=== PATIENT | male | born 1955 | race Caucasian/White ===

== ENCOUNTER 2017-04-19 01:09 | Observation (INO) ==
[2017-04-19] MEDS ORDERED: ASPIRIN PO STA (01:17)
--- NOTE | 2017-04-19 01:28 | ED EKG INTERP ---
This chart was entered by Chetna Contreras Scribe, acting as scribe for Tobias Cool MD. EKG Interpretation - EKG Time of EKG reading by physician:: 01:15 EKG Read and Signed by:: Tobias Cool EKG Interpretation (*Must complete 3 of following elements*): Normal Rate: 93 Rhythm: Pacemaker Rhythm Attestation - Physician/ MAY Attestation Patient care was provided by Advanced Practice Provider:: No The physician spent face to face time with patient:: Yes Advanced Practice Provider documentation review:: Supervising physician onsite and consulted in the evaluation and care of this patient. The physician did have a face to face encounter with the patient. This chart was documented by the indicated scribe, (Chetna Contreras Scribe) and accurately reflects the services I performed and decisions made by me, Tobias Cool MD, as attested by the provider's signature.
[2017-04-19 01:33] LABS: MANUAL DIFF NEEDED? NO
[2017-04-19] MEDS ORDERED: NITROGLYCERIN TOP ONE (01:37)
[2017-04-19] MEDS ORDERED: G.I. COCKTAIL PO ONE (01:37)
[2017-04-19 01:46] LABS: BASO% 0.2 % (0.0-0.8); EOS# 0.01 X1000 (0.0-0.7); EOS% 0.1 % (0.0-10.0); HEMATOCRIT 37.3 % (42.0-52.0); HEMOGLOBIN 12.9 g/dL (14.0-18.0); IMM GRAN# 0.22 X1000 (0.0-0.04); IMM GRAN% 1.7 % (0.0-0.5); LYMPH# 1.57 X1000 (1.2-3.4); MCH 33.1 PG (27-31); MCHC 34.6 g/dL (33-37); MCV 95.6 FL (81-99); MONO% 4.6 % (1.7-9.3); MPV 10.9 FL (7.4-10.4); NEUT% 81.4 % (42.2-75.2); PLT 238 X1000 (130-400)
[2017-04-19 01:51] LABS: INR 0.99; PROTIME 10.4 Seconds (9.2-11.7); PTT 26.6 Seconds (22.0-36.0)
--- NOTE | 2017-04-19 01:58 | PROVIDER DOCUMENTATION ---
This chart was entered by Chetna Contreras Scribe, acting as scribe for Tobias Cool MD. HPI-Chest Pain - General Chief Complaint: Chest Pain Stated Complaint: HEAT PAIN Time Seen by Provider: 04/19/17 01:16 Source: patient Allergies/Adverse Reactions: Patient Allergies Allergy/AdvReac Type Severity Reaction Status Date / Time No Known Allergies Allergy Verified 04/19/17 01:37 Home Medications: Home Medication List Medication Instructions Recorded Confirmed Last Taken Type Aspirin 81 mg PO QHS 08/18/12 04/19/17 04/18/17 19:00 History Carvedilol [Coreg] 25 mg PO BID 08/18/12 04/19/17 04/18/17 19:00 History Insulin Glargine [Lantus] 50 unit SUBQ QHS 08/18/12 04/19/17 04/18/17 19:00 History Metformin HCl [Glucophage] 1,000 mg PO BID 08/18/12 04/19/17 04/18/17 19:00 History Amlodipine [Norvasc] 10 mg PO QAM 06/17/13 04/19/17 04/18/17 08:00 History Ranolazine E.r. [Ranexa] 1,000 mg PO BID 05/13/16 04/19/17 04/18/17 19:00 History ATORVAstatin [Lipitor] 40 mg PO QHS #30 tablet 05/15/16 04/19/17 04/18/17 19:00 Rx Pantoprazole Sodium 40 mg PO QAM 03/18/17 04/19/17 04/18/17 08:00 History Sacubitril/Valsartan [Entresto 24 1 tab PO BID 03/18/17 04/19/17 04/18/17 19:00 History mg-26 mg Tablet] Clopidogrel [Plavix] 75 mg PO QAM 04/19/17 04/19/17 04/18/17 08:00 History Furosemide [Lasix] 40 mg PO QAM 04/19/17 04/19/17 04/18/17 08:00 History Isosorbide Mononitrate E.r. [Imdur] 60 mg PO QAM 04/19/17 04/19/17 04/18/17 08: 00 History Nitroglycerin Sl [Nitroglycerin] 0.4 mg SL PRN PRN 04/19/17 04/19/17 04/19/17 00 :00 History Sucralfate [Carafate] 1 gm PO 404/19/17 04/19/17 04/18/17 08:00 History - History of Present Illness-CP Nature of Presenting Problem: 62 Y/O M presents to ED with Chest Pain. Pt states that he began having chest pain 20:30 when he was getting ready for bed. States pain is about a 5.5/10 and that he took an aspirin and a nitro states didn't have pain relief. Pt states that the chest pain goes across his chest with radiation to the arm states dull pain. Pt denies diaphoresis. Pt has a hx of a CABG, triple bypass, heart attack , has a pacemaker with Defibrillator. Hx of diabetes. C/o of ABD pain, hx of pancreatic cyst removal. Location: reports: central Chest Pain Radiation: reports: arms Quality of Pain: reports: dull Severity in ED: moderate Onset/Duration: 4-6 hours ago Timing: still present Associated Symptoms: reports: abdominal pain. denies: diaphoresis, dizziness, fatigue, fever/chills, vomiting Nitro Today/Relief: 0.4 mg x 1, provided at home Aspirin Treatment Today: 325 mg x 1, provided at home (325mg x1), provided by ED Similar Symptoms Previously?: Yes Review of Systems - Adult - REVIEW OF SYSTEMS - ADULT Constitutional: denies: chills, fever Eyes: reports: no symptoms reported Ears, Nose, Mouth & Throat: reports: no symptoms reported Cardiovascular: reports: chest pain Respiratory: denies: cough, shortness of breath Gastrointestinal: reports: abdominal pain. denies: diarrhea, difficulty swallowing, nausea, vomiting Genitourinary: reports: no symptoms reported Musculoskeletal: reports: no symptoms reported Integumentary: reports: no symptoms reported Neurological: reports: no symptoms reported Psychiatric: reports: no symptoms reported Endocrine: reports: no symptoms reported Hematologic/Lymphatic: reports: no symptoms reported Allergic/Immunologic: reports: no symptoms reported All Other Systems: Reviewed and Negative Past History - Adult - PAST MEDICAL HISTORY-ADULT Review of Records: reports: Old Records Reviewed, Nursing Assessment Review, Medications Reviewed, Social history reviewed & non-contributory. Major Childhood Illnesses: reports: denies history Cardiovascular: reports: CAD, HTN, hyperlipidemia, [place], pacemaker, other (triple bypass) Respiratory: reports: COPD, sleep apnea Gastrointestinal: reports: denies history Obstetrical/Gynecological: reports: denies history Genitourinary: reports: denies history Musculoskeletal: reports: chronic pain Neurological: reports: CVA Endocrine/Immune: reports: Diabetes Other Conditions: reports: denies history - PRIOR SURGERIES/PROCEDURES Surgical/Procedure History: reports: CABG, hernia repair - PRIOR HOSPITALIZATIONS Prior Hospitalizations: reports: none - IMMUNIZATION STATUS Childhood Immunizations: See Nurse Assessment Flu Vaccine: See Nurse Assessment - FAMILY HISTORY Family History: reviewed, not pertinent Physical Exam-General - CONSTITUTIONAL General Appearance: alert, no apparent distress, obese - EYES Eyes: pink conjunctivae, anisocoria - HEAD, EARS, NOSE, MOUTH & THROAT HENMT: moist mucous membranes, normal ENT inspection, TMs normal, pharynx normal - NECK Neck: full range of motion, supple, normal inspection - RESPIRATORY Respiratory: lungs clear, normal breath sounds - CARDIOVASCULAR Cardiovascular: regular rate, rhythm, no edema, no gallop, no JVD, no murmur - GASTROINTESTINAL (ABDOMEN) Abdominal Exam: normal bowel sounds, soft, tenderness (RUQ). negative: distended, guarding, rigid, rebound - LYMPHATIC Lymphatic: no adenopathy - MUSCULOSKELETAL Back Exam: no CVA tenderness, no vertebral tenderness Extremity: non-tender - SKIN Integumentary: normal turgor, warm/dry - NEUROLOGIC Neurologic: grossly normal Progress - PLAN OF CARE/RESULTS Progress/Plan/Lab Results: Vital Signs - 8 hr 04/19/17 01:17 Temperature 97.7 F Pulse Rate 92 H Respiratory Rate 18 Blood Pressure 170/83 O2 Sat by Pulse Oximetry 99 Laboratory Results - last 24 hr 04/19/17 04/19/17 04/19/17 01:28 01:28 01:28 WBC 13.08 H RBC 3.90 L Hgb 12.9 L Hct 37.3 L MCV 95.6 MCH 33.1 H MCHC 34.6 RDW Std Deviation 12.0 Plt Count 238 MPV 10.9 H Immature Gran % (Auto) 1.7 H Neut % (Auto) 81.4 H Lymph % (Auto) 12.0 L Bledsoe % (Auto) 4.6 Eos % (Auto) 0.1 Baso % (Auto) 0.2 Immature Gran # (Auto) 0.22 H Neut # (Auto) 10.66 H Lymph # (Auto) 1.57 Bledsoe # (Auto) 0.60 H Eos # (Auto) 0.01 Baso # (Auto) 0.02 PT INR PTT (Actin FS) Sodium 142 Potassium 4.6 Chloride 101 Carbon Dioxide 22 L Anion Gap 19 BUN 26 H Creatinine 1.4 H Estimated GFR/1.73 m2 51 BUN/Creatinine Ratio 19 Glucose 200 H Calculated Osmolality 294 Calcium 9.4 Magnesium 1.4 L Total Bilirubin 0.40 AST 17 ALT 5 L Alkaline Phosphatase 52 Creatine Kinase 106 Troponin T < 0.010 Total Protein 7.7 Albumin 4.7 Globulin 3.0 Albumin/Globulin Ratio 1.6 Lipase 04/19/17 04/19/17 01:28 01:28 WBC RBC Hgb Hct MCV MCH MCHC RDW Std Deviation Plt Count MPV Immature Gran % (Auto) Neut % (Auto) Lymph % (Auto) Bledsoe % (Auto) Eos % (Auto) Baso % (Auto) Immature Gran # (Auto) Neut # (Auto) Lymph # (Auto) Bledsoe # (Auto) Eos # (Auto) Baso # (Auto) PT 10.4 INR 0.99 PTT (Actin FS) 26.6 Sodium Potassium Chloride Carbon Dioxide Anion Gap BUN Creatinine Estimated GFR/1.73 m2 BUN/Creatinine Ratio Glucose Calculated Osmolality Calcium Magnesium Total Bilirubin AST ALT Alkaline Phosphatase Creatine Kinase Troponin T Total Protein Albumin Globulin Albumin/Globulin Ratio Lipase 38 Orders Category Date Time Status Cardiac Monitoring DIRECTED Care 04/19/17 01:17 Active Oxygen Therapy- ED Nursing DIRECTED Care 04/19/17 01:17 Active Saline Loc NOW Care 04/19/17 01:17 Active acute [FLAT/UPRIGHT ABD/1 VIEW CHEST] [RAD] Stat Exams 04/19/17 01:38 Taken CBC WITH ELECTRONIC DIFF [HEME] Stat Lab 04/19/17 01:28 Completed CK PROFILE [SP CHEM] Stat Lab 04/19/17 01:28 Completed COMPREHENSIVE METABOLIC PANEL [CHEM] Stat Lab 04/19/17 01:28 Completed LIPASE [CHEM] Stat Lab 04/19/17 01:28 Completed MAGNESIUM [CHEM] Stat Lab 04/19/17 01:28 Completed PROTIME WITH INR [COAG] Stat Lab 04/19/17 01:28 Completed PTT [COAG] Stat Lab 04/19/17 01:28 Completed TROPONIN T Stat Lab 04/19/17 01:28 Completed Aspirin Med 04/19/17 01:17 Discontinued 325 mg PO STAT STA [place] Alk/Al&mg Hydrox [G.i. Cocktail] Med 04/19/17 01:37 Discontinued 30 ml PO NOW ONE Nitroglycerin Med 04/19/17 01:37 Discontinued 1 inch TOP NOW ONE EKG [EKG] Stat Ther 04/19/17 01:11 Ordered repeat exam: patient is pain free at this time. will admit for observation. hospitalist electronic news gathering camera person paged. Result Diagrams: 04/19/17 01:28 04/19/17 01:28 Departure - Departure Date of Disposition Decision: 04/19/17 Time of Disposition Decision: 02:51 DIAGNOSIS: Chest pain Qualifiers: Chest pain type: unspecified Qualified Code(s): R07.9 - Chest pain, unspecified CAD (coronary artery disease) Qualifiers: Coronary Disease-Associated Artery/Lesion type: [place] artery [place] vs. transplanted heart: [place] heart Associated angina: with unspecified angina Qualified Code(s): I25.119 - Atherosclerotic heart disease of [place] coronary artery with unspecified angina pectoris Disposition: ADMITTED INPATIENT 09 Certified Medical Emergency: Emergent Condition: Stable Referrals and Follow-Ups: None,PCP [Primary Care Provider] - - Critical Care Note This patient required my direct & personal management of CC.: Yes Attestation - Physician/ MAY Attestation The physician spent face to face time with patient:: Yes Advanced Practice Provider documentation review:: Supervising physician onsite and consulted in the evaluation and care of this patient. The physician did have a face to face encounter with the patient. This chart was documented by the indicated scribe, (Chetna Contreras Scribe) and accurately reflects the services I performed and decisions made by me, Tobias Cool MD, as attested by the provider's signature.
[2017-04-19 02:16] LABS: ALBUMIN 4.7 g/dL (3.5-5.0); CALCIUM 9.4 mg/dL (8.8-10.2); MAGNESIUM 1.4 mg/dL (1.5-2.7); POTASSIUM 4.6 mmol/L (3.5-5.1); TOTAL BILIRUBIN 0.4 mg/dL (0.20-1.00); TOTAL PROTEIN 7.7 g/dL (6.3-8.3)
[2017-04-19] MEDS ORDERED: MAGNESIUM SULFATE 2 GM/S.W.I. 2 GM/50 ML IVPB IV ONE ×2 (03:23→06:00)
[2017-04-19] MEDS ORDERED: ZOFRAN IV PRN (04:28)
[2017-04-19] MEDS ORDERED: NITROGLYCERIN SL PRN (04:28)
[2017-04-19] MEDS ORDERED: NS 1,000 ML IV SCH (04:28)
[2017-04-19] MEDS: LOVENOX SUBQ SCH (05:27)
[2017-04-19 05:39] LABS: HEMOGLOBIN A1C 5.4 % (4.8-6.0)
--- NOTE | 2017-04-19 05:46 | HISTORY AND PHYSICAL ---
PRIMARY CARE PROVIDER: MOTOR BIKE MECHANIC: Dr. Wiggins. REASON FOR ADMISSION: Chest pain. HISTORY OF PRESENT ILLNESS: A 62-year-old male presents to the emergency room with chest pain that started around 20:30 when he was getting ready for bed. The patient states it was about 5/10. He took an aspirin and a few nitro's but did not have relief. He did have pain across the bottom of his chest that was dull that radiated to the arm. He denied diaphoresis, dizziness, nausea, or vomiting, diarrhea or dysuria. The patient has a known history of coronary artery disease and is status post triple bypass. He has a defibrillator placed and history of diabetes mellitus. He did complain of some recent abdominal pain in the right upper quadrant that seemed to radiate into his chest and some nausea during the morning, but he states that happens on and off, and was not associated with this episode. Chest x-ray, abdominal x-ray and laboratory data was complete and grossly normal. The patient did have a mildly elevated BUN and creatinine at 26 and 1.4, which appears to be acute. He will be admitted in observation status for further evaluation and treatment. PAST MEDICAL HISTORY: See HPI. PREVIOUS SURGICAL HISTORY: 1. Coronary artery bypass. 2. AICD placement. 3. Pancreatic pseudocyst surgery. FAMILY HISTORY: Positive for heart disease, diabetes and asthma in first-degree relatives. SOCIAL HISTORY: He stopped smoking over a year ago. He lives at home with his . No alcohol or illicit drug use or abuse. ALLERGIES: No known drug allergies. HOME MEDICATIONS: 1. Norvasc 10 mg p.o. every morning. 2. Ranexa 1000 mg p.o. b.i.d. 3. Metformin 1000 mg p.o. b.i.d. 4. Aspirin 81 mg daily. 5. Coreg 25 mg p.o. daily. 6. Lantus 45 units subcutaneously at bedtime. 7. Lipitor 40 mg p.o. at bedtime. 8. Entresto 24/26 mg 1 p.o. b.i.d. 9. Protonix 40 mg p.o. daily. 10. Nitroglycerin 0.4 sublingual p.r.n. 11. Carafate 1 g p.o. 4 times a day. 12. Lasix 40 mg daily. 13. Imdur 60 mg p.o. daily. 14. Plavix 75 mg p.o. daily. REVIEW OF SYSTEMS: Fourteen point review of systems conducted with the patient. Pertinent positives listed above in the HPI. All other systems reviewed and found to be negative. PHYSICAL EXAMINATION: VITAL SIGNS: Temperature 97.7 degrees, pulse 78, respirations 18, blood pressure 168/82, and oxygen saturation 99% on room air. GENERAL: Very pleasant 62-year-old male lying on the ER stretcher in no acute distress. is at the bedside, very supportive and answers all questions appropriately. HEENT: Head is atraumatic, normocephalic. Pupils equal, round, and reactive to light. Extraocular eye movements are intact. Sclerae is anicteric. Conjunctivae is pink. Oral mucosa is moist. NECK: Supple. No JVD. No thyromegaly. Trachea is midline. No cervical lymphadenopathy. CARDIAC: S1-S2 appreciated. No murmurs, gallops, or rubs. Regular rhythm. LUNGS: Clear to auscultation but decreased bilaterally. No rhonchi, wheezes or rales. ABDOMEN: Protuberant soft, nondistended, and nontender. Bowel sounds present in all 4 quadrants. Normoactive. No pulsatile mass. No organomegaly. EXTREMITIES: No clubbing, cyanosis, or edema. 2+ pedal pulses bilaterally. NEUROLOGICAL: Alert and oriented x3. No focal or motor deficit is noted. SKIN: Warm, dry, and intact. No acute lesions or rash. LABORATORY DATA: WBC 13.08, hemoglobin 12.9, hematocrit 37.3 and platelet count 238,000. Coag's within normal limits. Sodium 142, potassium 4.6, chloride 101, carbon dioxide 22, BUN 26, creatinine 1.4, glucose 200, magnesium 1.4. CK 1 and troponin's are within normal limits. ASSESSMENT AND PLAN: 1. Chest pain, rule out acute myocardial infarction. Trend cardiac enzymes. Consult cardiology. Morphine as needed for chest pain. 2. Chronic systolic heart failure. Continue home medications. Again, Cardiology will be consulted. He is not in exacerbation. 3. Acute kidney injury. We will give gentle fluid rehydration at 75 mL an hour normal saline overnight. 4. Hypomagnesemia. We will give 2 g of magnesium sulfate IV. 5. Hyperlipidemia. Continue statin. 6. Diabetes mellitus with hyperglycemia. Continue home medications. Check hemoglobin A1c. Further recommendations per patient clinical course. Dictated by JOSE Moralez for Marin Villeda MD cc: JOSE Moralez MD Primary Care Provider
--- NOTE | 2017-04-19 06:09 | EKG Report ---
Test Performed on : 04/19/2017 04:42:54 AM Test Reason : chest pain Blood Pressure : / mmHG Vent. Rate : 076 BPM Atrial Rate : 076 BPM P-R Int : 182 ms QRS Dur : 140 ms QT Int : 452 ms P-R-T Axes : 019 -74 082 degrees QTc Int : 508 ms Electronic ventricular pacemaker Biventricular pacemaker detected Abnormal ECG When compared with ECG of 19-APR-2017 02:53, (Unconfirmed) No significant change was found Confirmed by Chito Love DO ([id number]) on 04/22/2017 9:49:58 AM
--- NOTE | 2017-04-19 06:19 | EKG Report ---
Test Performed on : 04/19/2017 01:15:10 AM Test Reason : CP Blood Pressure : / mmHG Vent. Rate : 093 BPM Atrial Rate : 093 BPM P-R Int : 168 ms QRS Dur : 148 ms QT Int : 412 ms P-R-T Axes : 034 -73 083 degrees QTc Int : 512 ms Sinus rhythm. with occasional premature ventricular complexes. Left axis deviation Nonspecific intraventricular block Possible Lateral infarct , age undetermined Cannot rule out Inferior infarct , age undetermined Abnormal ECG When compared with ECG of 14-MAY-2016 06:31, Sinus rhythm. has replaced Electronic ventricular pacemaker Unconfirmed Result
--- NOTE | 2017-04-19 06:20 | EKG Report ---
Test Performed on : 04/19/2017 02:53:33 AM Test Reason : CP Blood Pressure : / mmHG Vent. Rate : 078 BPM Atrial Rate : 078 BPM P-R Int : 182 ms QRS Dur : 144 ms QT Int : 442 ms P-R-T Axes : 011 -75 084 degrees QTc Int : 503 ms Normal sinus rhythm. Right bundle branch block Left anterior fascicular block Bifascicular block Abnormal ECG When compared with ECG of 19-APR-2017 01:15, (Unconfirmed) premature ventricular complexes. are no longer present Borderline criteria for Lateral infarct are no longer present Unconfirmed Result
[2017-04-19] MEDS: HUMALOG SUBQ SCH ×4 (07:08→23:33)
--- NOTE | 2017-04-19 07:32 | Diag Imaging Result Doc PS360 ---
EXAM: FLAT/UPRIGHT ABD/1 VIEW CHEST INDICATION: upper abdomen/anterior chest discomfort TECHNIQUE: 4 views COMPARISON: Chest radiograph dated 05/12/2016 FINDINGS: There are nonspecific bowel gas and stool patterns. There is no obstructive bowel pattern. There is no evidence of large volume free abdominal gas. There is no evidence of organomegaly. The lungs are grossly clear. There is no discrete pleural fluid collection or pneumothorax. The heart is somewhat prominent but stable. There is a stable left-sided pacemaker. IMPRESSION: Nonspecific abdomen. Electronically signed by Luis Benavides 04/19/2017 7:30 AM
[2017-04-19] MEDS: RANEXA PO SCH ×2 (08:54→20:12)
[2017-04-19] MEDS: CARAFATE PO SCH ×4 (08:54→20:12)
[2017-04-19] MEDS: COREG PO SCH ×2 (08:54→20:12)
[2017-04-19] MEDS: PLAVIX PO SCH (08:54)
[2017-04-19] MEDS: PROTONIX PO SCH (08:54)
[2017-04-19] MEDS: NORVASC PO SCH (08:54)
[2017-04-19] MEDS: ENTRESTO 24 MG-26 MG TABLET PO SCH ×2 (08:55→20:12)
[2017-04-19] MEDS: LASIX PO SCH (08:55)
[2017-04-19] MEDS ORDERED: IMDUR PO SCH ×2 (09:00→09:37)
[2017-04-19] MEDS ORDERED: IMDUR PO ONE (09:37)
--- NOTE | 2017-04-19 09:55 | Diag Imaging Result Doc PS360 ---
EXAM: US ABDOMEN-COMPLETE HISTORY: rule out galstones TECHNIQUE: COMPARISON: 12/14/2016 FINDINGS: There is fatty infiltration of the liver. Normal gallbladder. No stones. The gallbladder wall is not thickened. The common bile duct measures 6 mm. Borderline increased renal echotexture. No hydronephrosis to the right kidney. No hydronephrosis to the left kidney. Normal cortical thickness to each kidney. Normal spleen. No ascites. The aorta, inferior vena cava, and pancreas are all obscured. IMPRESSION: 1.Fatty infiltration of the liver 2.Normal gallbladder 3.Borderline mild increased renal echotexture which can be seen with medical renal disease. Electronically signed by Chris Norris 04/19/2017 9:53 AM
--- NOTE | 2017-04-19 10:58 | CONSULTATION ---
DATE OF CONSULTATION: 04/19/2017 INDICATION: Chest pain. HISTORY OF PRESENT ILLNESS: Mr. Balderrama is a 62-year-old white male with a history of coronary artery disease with severe knik and bypass vessel coronary artery disease that previously has been determined not amenable to intervention. He presented for evaluation of chest discomfort that began around 8:30 yesterday evening while he was lying in bed. It is described as a pressure- like sensation in his mid chest with discomfort in his bilateral arms as well. He took several bouts of nitroglycerin with some improvement, but ultimately did not improve until he got to the ER. He had no nausea, vomiting, no diaphoresis. He has a defibrillator in place with no device shocks. He reports compliance with his medications at home, including his aspirin, however I have questions about this considering his heart rate is markedly elevated compared to previous heart rates while on the same level of beta blockade. PAST MEDICAL HISTORY: 1. Significant for coronary disease with coronary bypass. His last cardiac cath was in February 2016. This demonstrated an 80% to 90% left main lesion, an occluded mid LAD with an occluded diagonal. Ramus had an ostial 70-80. Circumflex had diffuse severe disease in a small caliber vessel. RCA was dominant and subtotal within the distal vessel prior to the PDA. The PDA was occluded. There was a collateralization of the left system via the distal RCA. His graft anatomy showed a vein jump graft to the LAD and diagonal that was patent. The vein graft to the RCA was occluded. At the time, EF was 20%. 2. Hypertension. 3. Hyperlipidemia. 4. History of AICD implantation secondary to ischemic cardiomyopathy. 5. Type 2 diabetes. 6. Hypertension. 7. Hyperlipidemia. 8. Previous history of tobacco use. 9. History of pancreatitis. 10. Reflux disease. 11. COPD. SOCIAL HISTORY: Quit smoking around a year or so ago. Lives at home with his . No alcohol or illicit drugs. FAMILY HISTORY: Significant for hypertension. REVIEW OF SYSTEMS: A 10 system review of systems is negative, except for those things mentioned in HPI. PHYSICAL EXAMINATION: Vital signs: Afebrile. Heart rates in the 70s to 80s. Blood pressure 160/88. O2 saturation 99% on room air. General: Generally, no acute distress. HEENT: Oropharynx is moist. Poor dentition. Eye examination shows pink conjunctivae, white sclerae. Neck: Examination shows no obvious thyromegaly or thyroid tenderness. Cardiovascular: He is in a regular rate and rhythm. No murmurs. No S3. He has no S4. No lower extremity edema. Chest: Exam is clear bilaterally. No increased work of breathing. Abdomen: Soft, nontender, nondistended. He has no obvious organomegaly. Skin Exam: Warm and dry throughout. Neurological: Moving all extremities well. Cranial nerves 2-12 are intact without any sensation deficits. Psychiatric: Alert and oriented. Normal mood and affect. PERTINENT DATA: He had an EKG showing sinus rhythm, paced ventricular complexes. I do not see a result of a chest x-ray as of yet. Acute abdominal series shows a nonspecific abdomen with no evidence of any significant chest abnormalities. His laboratory data shows a white count of 13, his hematocrit is 37, his platelet count is 238. His INR is 0.99. Sodium 142, potassium 4.6. His BUN is 26 with a creatinine 1.4. His mag is 1.4. His A1c is 5.4. His cardiac enzymes are negative times multiple sets. His proBNP was 5252. ASSESSMENT: 1. Ischemic cardiomyopathy. 2. Hypertension. PLAN: Patient has received a stress/rest myocardial perfusion scan with a rest today and stress in the morning because he was not made n.p.o. I have increased his Imdur presently. His chest x- ray did not show evidence for fluid accumulation. He does have some mild renal insufficiency noted on his study, although his proBNP seems out of proportion to his renal insufficiency. I will stop his IV fluids. We may need to consider increasing his Entresto in the morning if his blood pressure continues to be quite elevated over the course of the day. I have made sure that he gets his full 90 mg of Imdur this morning. cc: Minesh Love MD
[2017-04-19] MEDS: MORPHINE IV PRN ×3 (11:06→19:15)
[2017-04-19] MEDS ORDERED: ASPIRIN PO SCH (21:00)
[2017-04-19] MEDS ORDERED: LANTUS SUBQ SCH (21:00)
[2017-04-19] MEDS ORDERED: LIPITOR PO SCH (21:00)
[2017-04-20] MEDS: LOVENOX SUBQ SCH (04:35)
[2017-04-20] MEDS: MORPHINE IV PRN ×2 (04:38→09:25)
--- NOTE | 2017-04-20 04:38 | ECHO REPORT ---
ORDER DATE: 04/19/2017 MEASUREMENTS: 1. Left ventricular septal thickness 1.1. 2. Posterior wall thickness 1.1. 3. Left atrium 5.0. 4. Aortic root 3.5. SUMMARY: 1. Technically difficult study due to limited acoustic window quality. 2. Mild aortic valve sclerosis demonstrated with adequate aortic valve opening evident and peak gradient across the aortic valve less than 10 mmHg. Mitral, tricuspid, and pulmonic valves are without structural abnormality with mild mitral regurgitation, mild tricuspid regurgitation, and mild pulmonic insufficiency. The estimated systolic PA pressure by Doppler is 45-50 mmHg. [id number] pulmonary hypertension suggested. Aortic root is normal size. 3. [id number] left ventricular enlargement with upper normal wall thickness demonstrated. Estimated left ejection fraction is approximately 35%. Regional wall motion analysis is challenging given limitations of the study. Left atrium is moderately enlarged. Right atrium and right ventricle are normal in size with normal right ventricular systolic function. Pacemaker lead versus defibrillator lead evident in right ventricle. 4. No pericardial effusion. 5. Appearance of inferior vena cava suggests normal central venous pressure. cc: MD Marin Sheets MD
[2017-04-20 04:55] LABS: MANUAL DIFF NEEDED? NO
[2017-04-20 05:02] LABS: BASO% 0.3 % (0.0-0.8); EOS# 0.17 X1000 (0.0-0.7); EOS% 1.4 % (0.0-10.0); HEMATOCRIT 35.4 % (42.0-52.0); HEMOGLOBIN 12.1 g/dL (14.0-18.0); IMM GRAN% 1.6 % (0.0-0.5); LYMPH# 2.43 X1000 (1.2-3.4); LYMPH% 19.4 % (20.5-51.1); MCH 32.8 PG (27-31); MCHC 34.2 g/dL (33-37); MCV 95.9 FL (81-99); MONO# 0.93 X1000 (0.11-0.59); MONO% 7.4 % (1.7-9.3); MPV 10.7 FL (7.4-10.4); NEUT% 69.9 % (42.2-75.2); PLT 240 X1000 (130-400); RBC 3.69 XMIL (4.7-6.1)
[2017-04-20 05:30] LABS: AGAP 16; BUN 31 mg/dL (8-22); CALCIUM 9.8 mg/dL (8.8-10.2); CHLORIDE 99 mmol/L (98-107); COSMO 289; POTASSIUM 4.5 mmol/L (3.5-5.1); SODIUM 139 mmol/L (136-145); TCO2 24 mmol/L (25-35)
[2017-04-20] MEDS: PROTONIX PO SCH (06:16)
[2017-04-20] MEDS: HUMALOG SUBQ SCH ×2 (06:20→11:23)
[2017-04-20 07:19] VITALS: BP 131/81
[2017-04-20] MEDS ORDERED: IMDUR PO SCH (08:05)
[2017-04-20] MEDS: PLAVIX PO SCH (09:23)
[2017-04-20] MEDS: CARAFATE PO SCH ×2 (09:23→14:05)
[2017-04-20] MEDS: RANEXA PO SCH (09:23)
[2017-04-20] MEDS: NORVASC PO SCH (09:23)
--- NOTE | 2017-04-20 10:17 | PROGRESS NOTE ---
DATE: 04/20/2017 SUBJECTIVE: He has not had any chest pain overnight, no orthopnea. PHYSICAL EXAMINATION: Vital Signs: Afebrile. Heart rate in the 60s. Blood pressure 131/81. General: No acute distress. Cardiovascular: He is in a regular rate and rhythm. No murmurs. No S3. No lower extremity edema. Chest exam: Clear bilaterally. No increased work of breathing. Abdomen: Soft, nontender, nondistended. No obvious organomegaly. Skin Exam: Warm and dry throughout. PERTINENT DATA: Echocardiogram demonstrates an EF of 35% with moderate left atrial enlargement. Device leads noted in the right heart chambers. White count 12.5, hematocrit 35, platelet count 240. Sodium 139, potassium 4.5, BUN 31, creatinine 1.2. ASSESSMENT: Non ST-elevation myocardial infarction in a patient with previously interveneable coronary artery disease. PLAN: We will proceed with myocardial perfusion imaging to assess his burden of ischemia. I have increased his Imdur; the total increase in his Imdur will be from [address] up to 120; 60 was the admitting dose. He was increased to 90 yesterday and subsequently 120 today. Further recommendations to follow the results of stress test. cc: Minesh Love MD
[2017-04-20] MEDS ORDERED: LEXISCAN ONE (12:00)
[2017-04-20] MEDS: ENTRESTO 24 MG-26 MG TABLET PO SCH (14:04)
[2017-04-20] MEDS: LASIX PO SCH (14:05)
[2017-04-20] MEDS: COREG PO SCH (14:05)
--- NOTE | 2017-04-20 15:40 | Diag Imaging Result Document ---
PROCEDURE NAME: MYOCARDIAL PERF SCAN, STR/REST - 04/19/2017 INDICATION FOR THE STUDY: Chest pain. Non ST-elevation myocardial infarction. PROCEDURES PERFORMED: 1. One-day stress/rest myocardial perfusion imaging. 2. Lexiscan stress. PROCEDURE IN DETAIL: Mr. Balderrama was brought to the nuclear laboratory and had a resting study with injection of 14.8 mCi of technetium-99m sestamibi with usual imaging protocol utilized. Subsequently, he was brought back and had a Lexiscan stress. At peak stress, was injected with 43.5 mCi of technetium-99m sestamibi with usual imaging protocol utilized. FINDINGS: LEXISCAN STRESS RESULTS: 1. Baseline EKG shows sinus rhythm. He is ventricularly paced. 2. Lexiscan stress did not demonstrate any clear evidence of ischemic-related EKG changes or significant arrhythmias. PERFUSION IMAGING RESULTS: 1. No evidence of abnormal extracardiac uptake. 2. TID ratio is 1.03. 3. Perfusion imaging shows large size, severe grade defects located in the inferior apical, mid inferior, basal inferior segments and significant portions of the inferior lateral segments. The majority of this appears to be fixed with the exception of some small areas in the inferior lateral basilar portions which appear to have some reversibility associated with this. This is a largely fixed defect consistent with infarct with some small areas of [place]- infarct ischemia. Summed stress score is 22, summed rest score is 18. 4. Severely reduced ejection fraction of 32%. The end-diastolic volume is significantly dilated at 300 with an end-systolic volume of 204. There appears to be significant global hypokinesis with akinesis of the inferior funez. cc: Minesh Love MD
--- NOTE | 2017-04-20 20:29 | DISCHARGE SUMMARY ---
ADMISSION DATE: 04/19/2017 DISCHARGE DATE: 04/20/2017 DISPOSITION: Home. INVASIVE PROCEDURES DONE DURING THIS ADMISSION: None. IMAGING STUDIES OF SIGNIFICANCE: 1. Echocardiogram was done which showed an ejection fraction of 35%. 2. Perfusion scan was done which shows a large size severe grade defect located in the inferior apical, mid inferior. Ejection fraction was reduced at 32%. There appears to be significant global hypokinesis and inferior akinesis of the inferior wall. Followup will be with employee relations representative, Dr. Wiggins. ADMISSION DIAGNOSES: 1. Chest pain, rule out myocardial infarction. 2. Chronic systolic heart failure. 3. Acute kidney injury. 4. Hypomagnesemia. DIAGNOSES AT TIME OF DISCHARGE: 1. Atypical chest pain. 2. History of coronary artery disease. 3. Acute on chronic systolic congestive heart failure secondary to ischemic cardiomyopathy. 4. Hypertension. 5. Diabetes mellitus. DISCHARGE MEDICATIONS: 1. Insulin 45 units subcutaneous glargine. 2. Carvedilol 25 b.i.d. 3. Aspirin 81 mg daily. 4. Metformin 1 g b.i.d. 5. Amlodipine 100 mg daily. 6. Ranolazine 1000 mg b.i.d. 7. Atorvastatin 40 mg at bedtime. 8. Entresto 1 tablet b.i.d. 9. Pantoprazole 40 mg daily. 10. Carafate. 11. Furosemide 40 mg daily. 12. Clopidogrel 75 mg daily. 13. Imdur 120 p.o. daily. PRESENTING COMPLAINT: Chest pain. HISTORY OF PRESENT COMPLAINT: Mr. Conchis bai is a male with an extensive past medical history of coronary artery disease, AICD who presented to the emergency department because of on and off chest discomfort. The patient was evaluated with EKG. Troponins initially were unremarkable, however, because of his history it was recommended that he go under further ischemic stratification. HOSPITAL COURSE: Patient did pretty well during the hospital stay. The chest pain actually improved but he did complain of some abdominal discomfort. He was concern for possible gallstone disease. An ultrasound of the abdomen was done which showed a normal gallbladder. A stress test was also done which showed old infarct but no reversibility on the study. I spoke with the employee relations representative and from their standpoint they thought the patient could be discharged to follow up with them on an outpatient basis. Mr. Balderrama, therefore, is going to be discharged in very stable condition. DISPOSITION: Home. ACTIVITY: As tolerated. DIET: Healthy heart diet. FOLLOWUP: [facility]. [facility]. TIME SPENT FOR DISCHARGE: 37 minutes. cc: Jarad Irvin MD [email or web address]
== END 2017-04-20 15:50 | disposition home or self-care (01) ==
LOC: ED 01:09 → SUATTDRO 04:15 → 3S 04:15 → INTOOBSV 04:15
PROVIDERS: ATTEND Internal Medicine